=== PATIENT | male | born 1980 | race Caucasian/White ===

== ENCOUNTER 2017-01-24 06:58 | Outpatient (CLI) | payer MEDICAID | END 2017-01-24 06:59 | disposition critical access hospital (66) | DX: F22 Delusional disorders (principal) | CPT/HCPCS: A0425; A0429 ==

== ENCOUNTER 2017-01-24 07:28 | Emergency (ER) | payer MEDICAID ==
[2017-01-24 07:32] VITALS: BP 176/102
--- NOTE | 2017-01-24 08:09 | ED Physician Documentation ---
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 PD PAST MEDICAL HISTORY - Past Medical History Cardiovascular: Hypertension Psych: Anxiety, Other - Past Surgical History Past Surgical History: No - Present Medications Home Medications: Ambulatory Orders Medication Instructions Recorded Confirmed HYDROcod/ACETAM 5/325 [[place] 5/325] 1 - 2 ea PO Q6H PRN #20 tablet 07/29/15 Ibuprofen 400 mg PO QID #30 tablet 08/20/16 Mupirocin 1 applic TP BID #15 oint...g. 08/20/16 - Allergies Allergies/Adverse Reactions: Allergies Allergy/AdvReac Type Severity Reaction Status Date / Time No Known Drug Allergies Allergy Verified 05/22/15 12:31 - Social History Does the pt smoke?: Yes Smoking Status: Current every day smoker Does the pt drink ETOH?: No Does the pt have substance abuse?: Yes - Immunizations Immunizations are current?: Yes - POLST Patient has POLST: No PD ED PE NORMAL - Vitals Vital signs reviewed: Yes (hypertensive ) - General General: No acute distress, Well developed/nourished, Other (The patient appears dishevled and is aloof. ) - HEENT HEENT: Atraumatic, PERRL, Other (poor dentition dry mucous membranes ) - Neck Neck: Supple, no meningeal sign, No bony TTP - Cardiac Cardiac: RRR, No murmur - Respiratory Respiratory: No respiratory distress, Clear bilaterally - Abdomen Abdomen: Soft, Non tender - Back Back: No CVA TTP, No spinal TTP - Derm Derm: Normal color, Warm and dry, No rash - Extremities Extremities: No deformity, No edema - Neuro Neuro: No motor deficit, No sensory deficit Results - Vitals Vitals: Vital Signs - 24 hr 01/24/17 07:29 Temperature 36.1 C L Heart Rate 93 Respiratory 16 Rate Blood Pressure 176/102 H O2 Saturation 98 Oxygen O2 Source Room air PD MEDICAL DECISION MAKING - ED course Complexity details: re-evaluated patient, d/w patient ED course: 37 y/o homeless male admits to excessive use of meth and has not slept in days. He admits to auditory hallucinations and denies homicidal or suicidal ideation or commands. He leaves the ED and is not pursued Departure - Departure Disposition: 07 Against Medical Advice Discharge Date/Time: 01/24/17 08:22
== END 2017-01-24 08:22 | disposition left against medical advice (07) ==
LOC: EDUNIT# → ED 07:28
DX: F15.10 Other stimulant abuse, uncomplicated (principal); R44.0 Auditory hallucinations; I10 Essential (primary) hypertension; F17.200 Nicotine dependence, unspecified, uncomplicated; Z59.0 Homelessness; Z53.20 Procedure and treatment not carried out because of patient's decision for unspecified reasons
CPT/HCPCS: 80053; 80320; 82550; 82553; 83690; 85025; 99282

== ENCOUNTER 2017-01-24 09:46 | Emergency (ER) | payer MEDICAID ==
[2017-01-24 09:53] VITALS: BP 128/80
== END 2017-01-24 10:35 | disposition left against medical advice (07) ==
LOC: ED 09:46
DX: Z53.21 Procedure and treatment not carried out due to patient leaving prior to being seen by health care provider (principal)

== ENCOUNTER 2017-01-24 13:31 | Outpatient (CLI) | payer MEDICAID | END 2017-01-24 13:32 | disposition critical access hospital (66) | DX: R41.0 Disorientation, unspecified (principal) | CPT/HCPCS: A0425; A0429 ==

== ENCOUNTER 2017-01-24 13:47 | Emergency (ER) | payer MEDICAID | END 2017-01-24 16:40 | disposition left against medical advice (07) | DX: F22 Delusional disorders (principal); F15.10 Other stimulant abuse, uncomplicated; I10 Essential (primary) hypertension; F17.200 Nicotine dependence, unspecified, uncomplicated; Z59.0 Homelessness ==

== ENCOUNTER 2017-05-14 12:23 | Emergency (ER) | payer MEDICAID ==
[2017-05-14 12:34] VITALS: BP 148/88
[2017-05-14] MEDS ORDERED: IBUPROFEN 600 MG TABLET PO STA (13:21)
--- NOTE | 2017-05-14 13:24 | ED Physician Documentation ---
PD HPI OPHTHO - Stated complaint Stated Complaint: RED EYE - Chief complaint Chief Complaint: Heent - History obtained from History obtained from: Patient - History of Present Illness Timing - onset: How many weeks ago (2) Timing - duration: Weeks (2) Timing - details: Gradual onset, Still present Location: Right Quality / character: Itching, Sharp Associated symptoms: Redness, Photophobia, Headache Contributing factors: Other (has history of occular herpes) Similar symptoms before: Diagnosis (occular herpes) Recently seen: Not recently seen - Additional information Additional information: 37-year-old male who states that he has a history of recurrent ocular herpes. He has been having symptoms in his right eye for 2 weeks. He went to the [facility] in clinic and was prescribed ofloxacin drops. He feels that since he has been using these drops the eye pain and cloudiness has worsened. Review of Systems Constitutional: denies: Fever, Chills Eyes: reports: Decreased vision, Photophobia, Irritation Ears: denies: Ear pain Nose: denies: Rhinorrhea / runny nose, Congestion Throat: denies: Sore throat Respiratory: denies: Cough GI: denies: Vomiting : denies: Dysuria Skin: denies: Rash Musculoskeletal: denies: Neck pain, Back pain, Extremity pain Neurologic: denies: Generalized weakness, Focal weakness, Numbness PD PAST MEDICAL HISTORY - Past Medical History Cardiovascular: Hypertension Psych: Anxiety, Other - Past Surgical History Past Surgical History: No - Present Medications Home Medications: Ambulatory Orders Medication Instructions Recorded Confirmed Acyclovir 800 mg PO 5XD #35 tablet 05/14/17 - Allergies Allergies/Adverse Reactions: Allergies Allergy/AdvReac Type Severity Reaction Status Date / Time No Known Drug Allergies Allergy Verified 05/14/17 12:33 - Social History Does the pt smoke?: Yes Smoking Status: Current every day smoker Does the pt drink ETOH?: No Does the pt have substance abuse?: Yes - Immunizations Immunizations are current?: Yes - POLST Patient has POLST: No PD ED PE NORMAL - Vitals Vital signs reviewed: Yes (Hypertensive) - General General: Alert and oriented X 3, No acute distress, Well developed/nourished - HEENT HEENT: Atraumatic, PERRL, EOMI, Other (The right eye has a clouded ulceration in the inferior margin of the cornea on the right.) - Respiratory Respiratory: No respiratory distress - Derm Derm: Normal color, Warm and dry, No rash - Extremities Extremities: No deformity, No edema - Neuro Neuro: No motor deficit, No sensory deficit - Psych Psych: Normal mood, Normal affect Results - Vitals Vitals: Vital Signs - 24 hr 05/14/17 12:27 Temperature 36.2 C L Heart Rate 81 Respiratory 16 Rate Blood Pressure 148/88 H O2 Saturation 100 Oxygen O2 Source Room air PD MEDICAL DECISION MAKING - ED course Complexity details: considered differential, d/w patient ED course: 37-year-old male with a history of ocular herpes appears to have another bout and we will place him on some acyclovir orally. Departure - Departure Disposition: 01 Home, Self Care Clinical Impression: Herpes simplex ophthalmicus Condition: Stable Instructions: ED Herpes Keratitis Follow-Up: Partha Trent MD [Provider Admit Priv/Credential] - Prescriptions: Acyclovir 800 mg PO 5XD #35 tablet
[2017-05-14] MEDS ORDERED: IBUPROFEN 600 MG TABLET PO ONE (13:28)
== END 2017-05-14 13:34 | disposition home or self-care (01) ==
LOC: ED 12:23
DX: B00.89 Other herpesviral infection (principal); F17.200 Nicotine dependence, unspecified, uncomplicated
CPT/HCPCS: 99283; A9270

== ENCOUNTER 2017-07-15 19:45 | Outpatient (CLI) | payer MEDICAID | END 2017-07-15 19:46 | disposition critical access hospital (66) | LOC: EMS 19:45 | PROVIDERS: ATTEND Surgery | DX: M79.672 Pain in left foot (principal); M79.671 Pain in right foot | CPT/HCPCS: A0425; A0429 ==

== ENCOUNTER 2017-08-06 00:37 | Emergency (ER) | payer MEDICAID ==
[2017-08-06 00:44] VITALS: BP 142/85
[2017-08-06] MEDS ORDERED: IBUPROFEN 600 MG TABLET PO STA (00:57)
--- NOTE | 2017-08-06 01:05 | ED Physician Documentation ---
PD HPI LOWER EXT INJURY - Stated complaint Stated Complaint: BAM FOOT PAIN - Chief complaint Chief Complaint: Ext Problem - History obtained from History obtained from: Patient - History of Present Illness PD HPI LOW EXT INJURY LOCATION: Right, Left, Foot Where injury occurred: Home Timing - onset: Chronic Timing - details: Gradual onset, Still present Improved by: Rest, Immobilization Worsened by: Moving, Palpating Associated symptoms: Swelling, Discolored Similar symptoms before: Work up / diagnostics, Treatment Recently seen: Emergency Dept - Additional information Additional information: Patient is a 37 year old homeless male with underlying psychiatric disorder and a history of trench foot who is presenting to the emergency department for foot pain. Patient states that he thinks it might be gout and that he needs to get off his feet. Review of Systems Constitutional: denies: Fever, Chills Eyes: reports: Reviewed and negative Ears: reports: Reviewed and negative Nose: reports: Reviewed and negative Throat: reports: Reviewed and negative Cardiac: denies: Chest pain / pressure, Palpitations GI: denies: Nausea, Vomiting : reports: Reviewed and negative Skin: reports: Rash, Lesions Musculoskeletal: reports: Extremity pain, Extremity swelling Neurologic: denies: Generalized weakness, Focal weakness, Numbness PD PAST MEDICAL HISTORY - Past Medical History Past Medical History: Yes Cardiovascular: Hypertension Psych: Depression, Anxiety, Other Musculoskeletal: Gout - Past Surgical History Past Surgical History: No - Present Medications Home Medications: Ambulatory Orders Medication Instructions Recorded Confirmed No Known Home Medications [No 07/15/17 08/06/17 Known Home Medications] - Allergies Allergies/Adverse Reactions: Allergies Allergy/AdvReac Type Severity Reaction Status Date / Time No Known Drug Allergies Allergy Verified 08/06/17 00:43 - Social History Does the pt smoke?: Yes Smoking Status: Current every day smoker Does the pt drink ETOH?: Yes Does the pt have substance abuse?: Yes Substance Use and Type: Other - Immunizations Immunizations are current?: Yes - POLST Patient has POLST: No PD ED PE NORMAL - Vitals Vital signs reviewed: Yes - General General: Alert and oriented X 3, No acute distress - HEENT HEENT: Atraumatic, PERRL - Cardiac Cardiac: RRR, No murmur - Respiratory Respiratory: No respiratory distress - Abdomen Abdomen: Non distended - Neuro Neuro: Alert and oriented X 3, No motor deficit, No sensory deficit PD ED PE EXPANDED - General General: Disheveled, poorly kept - Derm Derm: Rash (skin breakdown on bilateral feet consistent with trench foot) - Extremities Extremities: Right foot, Left foot (mild erythema and flaking skin of both feet. foul smelling) Results - Vitals Vitals: Vital Signs - 24 hr 08/06/17 00:41 Temperature 37 C Heart Rate 76 Respiratory 18 Rate Blood Pressure 142/85 H O2 Saturation 99 Oxygen O2 Source Room air PD MEDICAL DECISION MAKING - ED course Complexity details: reviewed old records, reviewed results, re-evaluated patient , considered differential, d/w patient ED course: Patient was seen and examined at bedside. patient was well appearing and in no distress. Patient's feet were examined and patient was treated with ibuprofen. Patient had no imaging or further work up at this time and was stable for discharge with outpatient follow up. Departure - Departure Disposition: 01 Home, Self Care Clinical Impression: Immersion (trench) foot Condition: Good Instructions: Rash Skin Self Care Follow-Up: Kathy Huffman ARNP [Primary Care Provider] - Comments: the best treatment for your feet is to keep them clean and dry. You should change your socks frequently. You can take motrin or tylenol as needed for pain. You can also try applying eucerin cream after washing your feet. You should follow up with your doctor for further evaluation and care.
[2017-08-06] MEDS ORDERED: IBUPROFEN 600 MG TABLET PO ONE (01:12)
== END 2017-08-06 02:00 | disposition home or self-care (01) ==
LOC: ED 00:37
DX: T69.022A Immersion foot, left foot, initial encounter (principal); T69.021A Immersion foot, right foot, initial encounter; X31.XXXA Exposure to excessive natural cold, initial encounter; Z59.0 Homelessness; I10 Essential (primary) hypertension; F17.200 Nicotine dependence, unspecified, uncomplicated
CPT/HCPCS: 99283; A9270

== ENCOUNTER 2017-09-04 10:22 | Outpatient (CLI) | payer MEDICAID | END 2017-09-04 10:23 | disposition EMS.NT | LOC: EMS 10:22 | PROVIDERS: ATTEND Surgery | DX: R51 Headache (principal); M79.642 Pain in left hand; M79.641 Pain in right hand ==

== ENCOUNTER 2017-09-13 01:41 | Emergency (ER) | payer MEDICAID ==
[2017-09-13 01:51] VITALS: BP 148/87
[2017-09-13] MEDS ORDERED: ACETAMINOPHEN 500 MG TABLET PO STA (02:03)
--- NOTE | 2017-09-13 02:04 | ED Physician Documentation ---
History of Present Illness - Stated complaint Stated Complaint: ANXIETY,HIGH BLOOD PRESSURE - Chief complaint Chief Complaint: General - History obtained from History obtained from: Patient - History of Present Illness Timing: Today Pain level max: 6 Pain level now: 6 Improved by: rest Worsened by: nothing - Additonal information Additional information: Patient is a 37-year-old gentleman who presents to the emergency department complaining of being cold tonight. He is homeless and has been unable to find a penitentiary tonight. He also states that he has a mild headache, 5-6 out of 10. Has not had any alcohol today. He does smoke cigarettes. No vomiting. Has had rhinorrhea and congestion. Also has rainouts disease and states that his hands turn white or dark purple in the cold. Review of Systems Ten Systems: 10 systems reviewed and negative Constitutional: denies: Fever, Chills Ears: reports: Ear pain Nose: reports: Rhinorrhea / runny nose, Congestion Throat: denies: Sore throat Respiratory: reports: Cough (dry) GI: denies: Abdominal Pain, Nausea, Vomiting, Diarrhea Skin: denies: Rash Musculoskeletal: denies: Neck pain, Back pain Neurologic: denies: Headache PD PAST MEDICAL HISTORY - Past Medical History Past Medical History: Yes Cardiovascular: Hypertension Psych: Depression, Anxiety, Other Musculoskeletal: Gout - Past Surgical History Past Surgical History: No - Present Medications Home Medications: Ambulatory Orders Medication Instructions Recorded Confirmed No Known Home Medications [No 07/15/17 08/06/17 Known Home Medications] - Allergies Allergies/Adverse Reactions: Allergies Allergy/AdvReac Type Severity Reaction Status Date / Time No Known Drug Allergies Allergy Verified 09/13/17 01:51 - Social History Does the pt smoke?: Yes Smoking Status: Current every day smoker Does the pt drink ETOH?: Yes ETOH Use: Beer Does the pt have substance abuse?: Yes Substance Use and Type: Meth - Immunizations Immunizations are current?: Yes - POLST Patient has POLST: No PD ED PE NORMAL - Vitals Vital signs reviewed: Yes - General General: Alert and oriented X 3, No acute distress, Well developed/nourished - HEENT HEENT: PERRL, Ears normal, Moist mucous membranes, Pharynx benign - Neck Neck: Supple, no meningeal sign - Cardiac Cardiac: RRR, Strong equal pulses - Respiratory Respiratory: No respiratory distress, Clear bilaterally - Abdomen Abdomen: Soft, Non tender, Non distended - Derm Derm: Warm and dry, Other (cool hands, white/purple. NVI) - Extremities Extremities: No tenderness to palpate - Neuro Neuro: Alert and oriented X 3 - Psych Psych: Normal mood, Normal affect Results - Vitals Vitals: Vital Signs - 24 hr 09/13/17 01:45 Temperature 36.7 C Heart Rate 95 Respiratory 18 Rate Blood Pressure 148/87 H O2 Saturation 98 Oxygen O2 Source Room air PD MEDICAL DECISION MAKING - ED course Complexity details: re-evaluated patient, considered differential, d/w patient ED course: Patient is a 37-year-old male who presents to the emergency department with chief complaint of homelessness tonight. It is rather cold outside and he wanted somewhere warm to sleep. Also had a mild headache. Resolved with Tylenol. Tolerating p.o. without difficulty. No acute emergency medical condition at this time. Patient counseled regarding signs and symptoms for which I believe and urgent re-evaluation would be necessary. Patient with good understanding of and agreement to plan and is comfortable going home at this time This document was made in part using voice recognition software. While efforts are made to proofread this document, sound alike and grammatical errors may occur. Patient also with Reynauds and this resolved in the ED. Departure - Departure Disposition: 01 Home, Self Care Clinical Impression: Homeless Headache Qualifiers: Headache type: unspecified Headache chronicity pattern: acute headache Intractability: not intractable Qualified Code(s): R51 - Headache Condition: Good Instructions: ED Cephalgia Unspecified Follow-Up: Kathy Huffman ARNP [Primary Care Provider] - Within 1 week Comments: Drink plenty of fluids and rest. Return if you worsen. Discharge Date/Time: 09/13/17 02:21
== END 2017-09-13 02:21 | disposition home or self-care (01) ==
LOC: ED 01:41
DX: R51 Headache (principal); Z59.0 Homelessness; I73.00 Raynaud's syndrome without gangrene; I10 Essential (primary) hypertension; F17.200 Nicotine dependence, unspecified, uncomplicated
CPT/HCPCS: 99282; 99283; A9270

== ENCOUNTER 2017-11-18 23:03 | Emergency (ER) | payer MEDICAID ==
[2017-11-18 23:31] LABS: BASOPHILS # (AUTO) 0.1 10^3/uL (0.0-0.1); EOSINOPHILS # (AUTO) 0.5 10^3/uL (0.0-0.7); EOSINOPHILS % (AUTO) 5.3 %; HGB - HEMOGLOBIN 14.2 g/dL (14.0-18.0); LYMPHOCYTES # (AUTO) 3.9 10^3/uL (1.5-3.5); LYMPHOCYTES % (AUTO) 39.7 %; MEAN CORPUSCULAR HEMOGLOBIN 29.7 pg (27.0-31.0); MEAN CORPUSCULAR HGB CONC 34.1 g/dL (32.0-36.0); MEAN PLATELET VOLUME 7.4 fL (7.4-11.4); MONOCYTES # (AUTO) 0.7 10^3/uL (0.0-1.0); MONOCYTES % (AUTO) 6.8 %; NEUTROPHILS # (AUTO) 4.6 10^3/uL (1.5-6.6); NEUTROPHILS % (AUTO) 47.2 %; PLT - PLATELET COUNT 303 10^3/uL (130-450); RED BLOOD COUNT 4.77 10^6/uL (4.70-6.10); RED CELL DISTRIBUTION WIDTH 14.1 % (12.0-15.0); WHITE BLOOD COUNT 9.8 x10^3/uL (4.8-10.8)
[2017-11-18 23:42] LABS: ALBUMIN 3.9 g/dL (3.2-5.5); ALBUMIN/GLOBULIN RATIO 1.4 (1.0-2.2); ALKALINE PHOSPHATASE 63 IU/L (42-121); ALT ALANINE AMINOTRANSFERASE 45 IU/L (10-60); AST ASPARTATE AMINOTRANSFERASE 22 IU/L (10-42); BILIRUBIN,TOTAL 0.5 mg/dL (0.2-1.0); BUN - BLOOD UREA NITROGEN 25 mg/dL (6-20); CARBON DIOXIDE - CO2 24 mmol/L (21-32); CHLORIDE 103 mmol/L (101-111); GFR - MDRD 85 (>89); GLUCOSE 101 mg/dL (70-100); LIPASE 19 U/L (22-51); SODIUM 137 mmol/L (135-145); TOTAL PROTEIN 6.6 g/dL (6.7-8.2)
[2017-11-19 01:50] VITALS: BP 127/66
--- NOTE | 2017-11-19 01:53 | ED Physician Documentation ---
PD HPI MHE - Stated complaint Stated Complaint: SI - Chief complaint Chief Complaint: MHE - History obtained from History obtained from: Patient, Police - History of Present Illness Primary symptom: Psychosis Contributing factors: Substance abuse - drugs, Off meds Similar symptoms before: Work up / diagnostics Recently seen: Emergency Dept - Additional information Additional information: Patient is a 37 year old homeless male with a history of psychiatric disorder and methamphetamine abuse who is presenting to the emergency department for depression and altered mental status. Patient told police that he needed to clear his head and that he was depressed and needed a good nights sleep so they brought the patient to the emergency department. Review of Systems Unable to obtain: Confused PD PAST MEDICAL HISTORY - Past Medical History Cardiovascular: Hypertension Psych: Depression, Anxiety, Other Musculoskeletal: Gout - Past Surgical History Past Surgical History: No - Present Medications Home Medications: Ambulatory Orders Medication Instructions Recorded Confirmed No Known Home Medications [No 07/15/17 08/06/17 Known Home Medications] - Allergies Allergies/Adverse Reactions: Allergies Allergy/AdvReac Type Severity Reaction Status Date / Time No Known Drug Allergies Allergy Verified 11/18/17 23:08 - Social History Does the pt smoke?: Yes Smoking Status: Current every day smoker Does the pt drink ETOH?: Yes Does the pt have substance abuse?: Yes Substance Use and Type: Other - Immunizations Immunizations are current?: Yes - POLST Patient has POLST: No PD ED PE NORMAL - HEENT HEENT: Atraumatic - Neck Neck: Supple, no meningeal sign - Cardiac Cardiac: RRR - Respiratory Respiratory: No respiratory distress - Abdomen Abdomen: Non distended - Neuro Neuro: No motor deficit, Normal speech Eye Opening: Spontaneous Motor: Obeys Commands Verbal: Confused GCS Score: 14 PD ED PE EXPANDED - General General: Alert, Disheveled, poorly kept - HEENT HEENT: Dry mucous membranes - Extremities Extremities: Other (bilateral trench feet) Results - Vitals Vitals: Vital Signs - 24 hr 11/18/17 11/19/17 23:09 01:49 Temperature 36.6 C Heart Rate 86 77 Respiratory 16 18 Rate Blood Pressure 145/93 H 127/66 O2 Saturation 99 98 Oxygen O2 Source Room air - Labs Labs: Laboratory Tests 11/18/17 11/18/17 23:20 23:20 WBC 9.8 RBC 4.77 Hgb 14.2 Hct 41.5 L MCV 87.0 MCH 29.7 MCHC 34.1 RDW 14.1 Plt Count 303 MPV 7.4 Neut # 4.6 Lymph # 3.9 H Dolores # 0.7 Eos # 0.5 Baso # 0.1 Absolute Nucleated RBC 0.00 Nucleated RBC % 0.0 Sodium 137 Potassium 3.7 Chloride 103 Carbon Dioxide 24 Anion Gap 10.0 BUN 25 H Creatinine 1.0 Estimated GFR (MDRD) 85 L Glucose 101 H Calcium 9.0 Total Bilirubin 0.5 AST 22 ALT 45 Alkaline Phosphatase 63 Total Protein 6.6 L Albumin 3.9 Globulin 2.7 Albumin/Globulin Ratio 1.4 Lipase 19 L Ethyl Alcohol < 5.0 PD MEDICAL DECISION MAKING - ED course Complexity details: reviewed old records, reviewed results, re-evaluated patient , considered differential, d/w patient ED course: Patient was seen and examined at bedside. Patient was likely under the influence of meth but stated that he did not want to take a "piss test". Patient was allowed to sleep and was observed for 7 hours. IN the morning patient was awake, alert and stated that he did not want to talk to anybody. Patient was stable for discharge with outpatient follow up. Departure - Departure Disposition: 01 Home, Self Care Clinical Impression: Homeless, Depression, Affective psychosis Condition: Good Instructions: ED Stress React Follow-Up: Kathy Huffman ARNP [Primary Care Provider] - Within 3 Days Comments: Please follow up with your doctor. You may return to the emergency department at any time for new, worsening or uncontrollable symptoms.
== END 2017-11-19 06:48 | disposition home or self-care (01) ==
LOC: ED 23:03
DX: F32.9 Major depressive disorder, single episode, unspecified (principal); F29 Unspecified psychosis not due to a substance or known physiological condition; F15.10 Other stimulant abuse, uncomplicated; F17.200 Nicotine dependence, unspecified, uncomplicated; Z59.0 Homelessness
CPT/HCPCS: 36415; 80053; 80320; 83690; 85025; 99283; 99284

== ENCOUNTER 2022-12-30 07:00 | Outpatient (CLI) | payer MEDICAID ==
--- NOTE | 2022-12-30 15:45 | XRAY Report ---
PROCEDURE: Chest 2 View X-Ray INDICATIONS: WHEEZING TECHNIQUE: 2 views of the chest were acquired. COMPARISON: None. FINDINGS: Surgical changes and devices: None. Lungs and pleura: No pleural effusions or pneumothorax. Lungs are clear. Mediastinum: Mediastinal contours appear normal. Heart size is normal. Bones and chest wall: No suspicious bony lesions. Overlying soft tissues appear unremarkable. IMPRESSION: No acute cardiopulmonary process. Reviewed by: Enrique Garcia on 12/30/2022 3:43 PM PDT Approved by: Enrique Garcia on 12/30/2022 3:43 PM PDT Station ID: [id number]
== END 2022-12-30 23:59 | disposition home or self-care (01) ==
LOC: DI.S 07:00
PROVIDERS: ATTEND Physician Assistant
DX: R06.2 Wheezing (principal); R05.9 Cough, unspecified

== ENCOUNTER 2023-09-22 13:15 | Emergency (ER) | payer MEDICAID, OTHER ==
[2023-09-22 13:28] VITALS: BP 143/86; O2SAT 98
--- NOTE | 2023-09-22 14:09 | ED Physician Documentation ---
PD HPI OPHTHO - Stated complaint Stated Complaint: L EYE SWELLING/REDENSS - Chief complaint Chief Complaint: Heent - Additional information Additional information: 43-year-old male presents with left eyelid swelling and irritation and redness. 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 He does not feel a foreign body sensation but wonders if some debris or dust got in his eye. He woke up today and it was nearly completely swollen shut. It itches a little and its uncomfortable. He has also noted some mucoid drainage. He has not had a fever. He states when he forces his eye open he does not have any change in vision and he can see well out of the left eye. 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 He has no history of eye allergies, and has not attempted any medication for this issue. PD PAST MEDICAL HISTORY - Past Medical History Past Medical History: Yes Cardiovascular: Hypertension HEENT: Chronic vision loss, Other Psych: Depression, Anxiety, Other Musculoskeletal: Gout Other Past Medical History: ocular herpes - Past Surgical History Past Surgical History: No - Present Medications Home Medications: Ambulatory Orders Medication Instructions Recorded Confirmed Amox/Clav 875/125 [Augmentin] 1 each PO Q12H #20 tablet 09/22/23 Tobramycin/Dexamethasone [Tobradex 1 - 2 drops OP Q4H 7 Days #2.5 ml 09/22/23 Eye Drops] diphenhydrAMINE [Benadryl] 25 mg PO Q4-6H #10 cap 09/22/23 - Allergies Allergies/Adverse Reactions: Allergies Allergy/AdvReac Type Severity Reaction Status Date / Time No Known Drug Allergies Allergy Verified 09/22/23 13:25 - Social History Does the pt smoke?: Yes Smoking Status: Current every day smoker Does the pt drink ETOH?: Yes Does the pt have substance abuse?: No - Immunizations Immunizations are current?: Yes - POLST Patient has POLST: No PD ED PE NORMAL - Vitals Vital signs reviewed: Yes - General General: Alert and oriented X 3, No acute distress, Well developed/nourished - HEENT HEENT: Atraumatic, Other (Corneal cloudiness of the right eye, no vision of the right eye. Left eye PERRL, EOMI. There is substantial upper lid swelling and conjunctival edema. No visual foreign body, no corneal ulceration or foreign body noted. No corneal abrasion.) - Cardiac Cardiac: RRR, No murmur, No gallop, No rub - Respiratory Respiratory: No respiratory distress, Clear bilaterally - Abdomen Abdomen: Normal bowel sounds, Soft, Non tender, Non distended - Free text exam Free text exam: Slight mucoid drainage from the left eye, mild redness of the left conjunctiva. 20/30 vision left eye. Results - Vitals Vitals: Vital Signs - 24 hr 09/22/23 13:21 Temperature 36.3 C L Heart Rate 93 Respiratory 16 Rate Blood Pressure 143/86 H O2 Saturation 98 Oxygen O2 Source Room air PD Medical Decision Making - ED course Complexity details: considered differential, d/w patient ED course: 43-year-old male presented with left eye lid swelling and eye redness as well as discomfort as described in HPI. On exam, patient does have baseline vision, there is no foreign body visualized, no corneal abrasion. He does have lid swelling which may be allergic or infectious. There are some mucoid drainage and edema. I discussed with patient that I recommend we treat more aggressively given he has no vision in his right eye. I we will give him Tobrex eyedrops to use every 4 hours for the next few days and then he can also take Augmentin for possible early preseptal cellulitis. Also recommended a cool compress to the eyelid and trying Benadryl as well to see if that helps with the swelling. I gave the patient a low threshold to return if he has any changes in vision, increased pain, difficulty moving the eye or new concerns and patient states understanding. 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 The redness and swelling may be a reaction to something that got into your eye or that you were exposed to versus an infection. Given your lack of vision in the right eye, I want to treat this more aggressively and I am going to give you eyedrops as well as oral antibiotics. I also recommend that you use a cool compress on the eyelid and take Benadryl as needed for the next several days which may help with swelling. If at any point time this seems to be worsening I would like you to return to the ER or see an eye doctor. Forms: PCP List Discharge Date/Time: 09/22/23 14:21
== END 2023-09-22 14:21 | disposition home or self-care (01) ==
LOC: ED 13:15
DX: H44.002 Unspecified purulent endophthalmitis, left eye (principal); F17.200 Nicotine dependence, unspecified, uncomplicated
CPT/HCPCS: 99283

== ENCOUNTER 2023-10-20 18:27 | Emergency (ER) | payer MEDICAID ==
[2023-10-20 18:37] VITALS: BP 195/124; O2SAT 100
[2023-10-20] MEDS ORDERED: HYDROcod/ACETAM 5/325 MG TABLET PO STA (18:47)
--- NOTE | 2023-10-20 18:56 | ED Physician Documentation ---
History of Present Illness - Stated complaint Stated Complaint: TOOTH PX - Chief complaint Chief Complaint: Heent - History obtained from History obtained from: Patient, Family - History of Present Illness Timing: How many weeks ago (1) Pain level max: 7 Pain level now: 7 - Additonal information Additional information: 43-year-old male with left upper dental pain. He states he has a problem with his teeth for many years, has seen a dentist and was supposed to have a tooth extraction but never followed up. He does smoke. No fevers. No chills. No facial swelling. Taking Tylenol without relief. No difficulty speaking or swallowing. No vision changes. Review of Systems Constitutional: denies: Fever, Chills PD PAST MEDICAL HISTORY - Past Medical History Past Medical History: Yes Cardiovascular: Hypertension Respiratory: None HEENT: Chronic vision loss, Other Psych: Depression, Anxiety, Other Musculoskeletal: Gout - Past Surgical History Past Surgical History: No - Present Medications Home Medications: Ambulatory Orders Medication Instructions Recorded Confirmed Amox/Clav 875/125 [Augmentin] 1 tab PO Q12H #20 tablet 10/20/23 HYDROcod/ACETAM 5/325 [[place] 5/325] 1 - 2 ea PO Q6H PRN #7 tablet 10/20/23 - Allergies Allergies/Adverse Reactions: Allergies Allergy/AdvReac Type Severity Reaction Status Date / Time No Known Drug Allergies Allergy Verified 10/20/23 18:30 - Social History Does the pt smoke?: Yes Smoking Status: Current every day smoker Does the pt drink ETOH?: No Does the pt have substance abuse?: Yes Substance Use and Type: Marijuana - Immunizations Immunizations are current?: Yes - POLST Patient has POLST: No PD ED PE NORMAL - Vitals Vital signs reviewed: Yes - General General: Alert and oriented X 3, No acute distress - HEENT HEENT: Moist mucous membranes, Other (Diffuse dental decay, decayed teeth throughout his mouth. There is no gingival abscess or drainable abscess. Tenderness near the left upper canine.) - Neck Neck: Supple, no meningeal sign - Derm Derm: Warm and dry - Neuro Neuro: Alert and oriented X 3 Results - Vitals Vitals: Vital Signs - 24 hr 10/20/23 10/20/23 18:32 19:04 Temperature 36.7 C Heart Rate 110 H Respiratory 18 17 Rate Blood Pressure 195/124 H O2 Saturation 100 Oxygen O2 Source Room air PD Medical Decision Making - ED course Complexity details: considered differential, d/w patient ED course: 43-year-old male with diffuse dental decay. No drainable abscess. No Dre's angina. Normal phonation. No trismus. Will place on antibiotics and pain medication. Have him follow-up with a dentist for further care. Patient counseled regarding signs and symptoms for which I believe and urgent re- evaluation would be necessary. Patient with good understanding of and agreement to plan and is comfortable going home at this time This document was made in part using voice recognition software. While efforts are made to proofread this document, sound alike and grammatical errors may occur. Departure - Departure Disposition: Home, Self Care Clinical Impression: Pain, dental Condition: Good Instructions: ED Tooth Pain Follow-Up: your,dentist this week [Other] Prescriptions: Amox/Clav 875/125 [Augmentin] 1 tab PO Q12H #20 tablet HYDROcod/ACETAM 5/325 [[place] 5/325] 1 - 2 ea PO Q6H PRN #7 tablet PRN Reason: Pain Comments: Take all antibiotics until gone. Return if you worsen. Your prescriptions were sent to [facility] in [place]. I am prescribing a short course of narcotic pain medication for you. These are potentially dangerous and addictive medications that should be used carefully. These medications may constipate you. Take an [id number] stool softener (docusate) twice daily with plenty of water while taking these medications. If you go 24 hours without a bowel movement, take [id number] miralax, per package instructions. Do not drink or drive while taking these medications. If you received narcotic or sedating medications while in the emergency department, do not drive for 24 hours. Store this medication in a safe, secure place and out of reach of children. It is a violation of federal law to give or sell this medication to another person or to use in a manner other than prescribed. The ED will not refill narcotic prescriptions, including prescriptions lost or stolen. To dispose of unwanted medications: 1. [facility] [address] in [place] has a medication drop box. They accept prescription medications (in pill form) Thursday through Thursday 9:00 a.m. to 5:00 p.m. 2. The [facility] [employer] accepts prescription medications (in pill form only) for disposal year round. Call for more information. 3. Contact the [facility] for the next [facility] sponsored prescription drug collection event. , [phone], or [phone]; Forms: PCP List Discharge Date/Time: 10/20/23 19:14
[2023-10-20] MEDS: AMOX/CLAV 875 MG/125 MG TABLET PO STA (19:01)
== END 2023-10-20 19:14 | disposition home or self-care (01) ==
LOC: ED 18:27
DX: K08.89 Other specified disorders of teeth and supporting structures (principal); I10 Essential (primary) hypertension; F17.200 Nicotine dependence, unspecified, uncomplicated
CPT/HCPCS: 99282; 99283; A9270

== ENCOUNTER 2023-12-20 04:58 | Outpatient (CLI) | payer SELFPAY | END 2023-12-20 23:59 | disposition critical access hospital (66) | LOC: EMS 04:58 | DX: R44.0 Auditory hallucinations (principal); F15.90 Other stimulant use, unspecified, uncomplicated | CPT/HCPCS: A0425; A0429 ==

== ENCOUNTER 2023-12-20 05:31 | Emergency (ER) | payer SELFPAY ==
--- NOTE | 2023-12-20 05:43 | ED Physician Documentation ---
PD HPI MHE - Stated complaint Stated Complaint: HALLUCINATIONS - Chief complaint Chief Complaint: MHE - History obtained from History obtained from: Patient - Additional information Additional information: BIBA. Patient called 911 due to auditory hallucinations. He is a somewhat scattered and vague historian on my HPI. The is unable to provide timeframe of onset. When I ask him when the auditory hallucinations started, he initially says 3 years ago. However, when I ask him when his most recent bout of auditory hallucinations started, he says somewhere in the last 1 or 2 days. He tells me "I didn't feel safe at home" but when I ask why he is unable to elaborate. He denies SI, denies HI, denies VH. Review of Systems Psychiatric: reports: Hallucinations, Anxiety, Insomnia. denies: Depressed, Suicidal, Homicidal PD PAST MEDICAL HISTORY - Past Medical History Past Medical History: Yes Cardiovascular: Hypertension Respiratory: None HEENT: Chronic vision loss, Other Psych: Depression, Anxiety, Other Musculoskeletal: Gout - Past Surgical History Past Surgical History: No - Present Medications Home Medications: Ambulatory Orders Medication Instructions Recorded Confirmed No Known Home Medications 12/20/23 12/20/23 - Allergies Allergies/Adverse Reactions: Allergies Allergy/AdvReac Type Severity Reaction Status Date / Time No Known Drug Allergies Allergy Verified 12/20/23 05:57 - Social History Does the pt smoke?: Yes Smoking Status: Current every day smoker Does the pt drink ETOH?: No Does the pt have substance abuse?: Yes - Immunizations Immunizations are current?: Yes - POLST Patient has POLST: No PD ED PE NORMAL - Vitals Vital signs reviewed: Yes - General General: Well developed/nourished, Other (anxious, poor eye contact, answers are frequently mumbled. answers many questions with vague responses such as "I can't talk about that") - HEENT HEENT: Other (right corneal opacification) - Cardiac Cardiac: RRR, No murmur - Respiratory Respiratory: No respiratory distress, Clear bilaterally - Abdomen Abdomen: Soft, Non tender Results - Vitals Vitals: Vital Signs - 24 hr 12/20/23 05:35 Temperature 36.7 C Heart Rate 84 Respiratory 16 Rate Blood Pressure 167/112 H O2 Saturation 96 Oxygen O2 Source Room air - Labs Labs: Laboratory Tests 12/20/23 12/20/23 07:19 07:19 WBC 7.9 RBC 4.79 Hgb 13.8 L Hct 42.0 MCV 87.7 MCH 28.8 MCHC 32.9 RDW 13.2 Plt Count 317 MPV 9.4 Neut # (Auto) 3.9 Lymph # (Auto) 2.8 [place] # (Auto) 0.7 Eos # (Auto) 0.4 Baso # (Auto) 0.1 Absolute Nucleated RBC 0.00 Nucleated RBC % 0.0 Sodium 137 Potassium 3.7 Chloride 104 Carbon Dioxide 28 Anion Gap 5.0 L BUN 20 Creatinine 1.0 Estimated GFR (MDRD) 82 L Glucose 118 H Calcium 9.5 Magnesium 1.8 Total Bilirubin 0.4 AST 23 ALT 19 Alkaline Phosphatase 68 Total Creatine Kinase 391 H Total Protein 6.2 L Albumin 4.0 Globulin 2.2 Albumin/Globulin Ratio 1.8 Lipase 16 TSH 0.87 Salicylates < 1.5 Acetaminophen 0.2 Ethyl Alcohol < 10.0 PD Medical Decision Making - ED course Complexity details: re-evaluated patient, considered differential, d/w patient ED course: Patient is anxious and slightly hyperkinetic on my H+P, mumbles many answers and other answers are vague. However, he is cooperative and answers some questions with pertinent responses. He denies SI, HI, VH. He says he is having AH although he indicated to triaging ED RN that the AH are not command hallucinations. I d/w patient goal(s) of treatment from his perspective (what he is hoping to have done for him on this ED visit), but this seems to make him slightly more anxious and distressed. He initially tells me he does not want to have blood drawn (which I recommended for purposes of medical clearance for telepsychiatric consult) because he is feeling too anxious and tense. I recommended 5mg TL zyprexa, explaining the purpose of this will be to hopefully reduce the AH and give him a mental filter for the apparently overwhelming AH he is experiencing, and he is agreeable to this. On reevaluation after the zyprexa has had adequate time to take effect, he is sleeping, awakens to gentle tactile (shoulder tap). He appears significantly more calm and less hyperkinetic. We again discussed options for treatment and he is now agreeable to my recommendation to have telepsychiatric consult; he is agreeable to blood tests and UA so that he can be medically cleared for the consult. Test results pending at end of my shift and thus care of patient is turned over to oncoming ED physician (Dr. Avilez) at end of my shift Departure - Departure Forms: PCP List
[2023-12-20] MEDS: OLANZapine ODT 5 MG TABLET TL STA (05:59)
[2023-12-20 07:25] LABS: BASOPHILS # (AUTO) 0.1 10^3/uL (0.0-0.1); BASOPHILS % (AUTO) 1.5 %; EOSINOPHILS # (AUTO) 0.4 10^3/uL (0.0-0.7); EOSINOPHILS % (AUTO) 5.3 %; HGB - HEMOGLOBIN 13.8 g/dL (14.0-18.0); LYMPHOCYTES # (AUTO) 2.8 10^3/uL (1.5-3.5); LYMPHOCYTES % (AUTO) 35.1 %; MEAN CORPUSCULAR HEMOGLOBIN 28.8 pg (27.0-31.0); MEAN CORPUSCULAR HGB CONC 32.9 g/dL (32.0-36.0); MEAN CORPUSCULAR VOLUME 87.7 fL (80.0-94.0); MEAN PLATELET VOLUME 9.4 fL (7.4-11.4); MONOCYTES # (AUTO) 0.7 10^3/uL (0.0-1.0); NEUTROPHILS # (AUTO) 3.9 10^3/uL (1.5-6.6); NEUTROPHILS % (AUTO) 48.8 %; PLT - PLATELET COUNT 317 10^3/uL (130-450); RED BLOOD COUNT 4.79 10^6/uL (4.70-6.10); RED CELL DISTRIBUTION WIDTH 13.2 % (12.0-15.0); WHITE BLOOD COUNT 7.9 x10^3/uL (4.8-10.8)
[2023-12-20 07:51] LABS: ACETAMINOPHEN 0.2 ug/mL; ALBUMIN/GLOBULIN RATIO 1.8 (1.0-2.2); ALKALINE PHOSPHATASE 68 IU/L (42-121); ALT ALANINE AMINOTRANSFERASE 19 IU/L (10-60); AST ASPARTATE AMINOTRANSFERASE 23 IU/L (10-42); BILIRUBIN,TOTAL 0.4 mg/dL (0.2-1.0); BUN - BLOOD UREA NITROGEN 20 mg/dL (6-20); CALCIUM 9.5 mg/dL (8.5-10.3); CARBON DIOXIDE - CO2 28 mmol/L (21-32); CHLORIDE 104 mmol/L (101-111); CK- CREATINE KINASE 391 IU/L (30-223); ETOH - ETHANOL < 10.0 mg/dL; GFR - MDRD 82 (>89); GLUCOSE 118 mg/dL (74-104); LIPASE 16 U/L (11-82); MAGNESIUM 1.8 mg/dL (1.7-2.3); POTASSIUM 3.7 mmol/L (3.5-4.5); SODIUM 137 mmol/L (135-145); TOTAL PROTEIN 6.2 g/dL (6.4-8.9)
[2023-12-20 07:52] LABS: THYROID STIMULATING HORMONE 0.87 uIU/mL (0.34-5.60)
[2023-12-20 07:57] LABS: SALICYLATE < 1.5 mg/dL
[2023-12-20] MEDS: traZODone 50 MG TABLET PO STA (10:40)
--- NOTE | 2023-12-20 10:43 | ED Physician Documentation ---
ED Addendum - Addendum Addendum: 12/20/23 10:41 The patient had slept for several hours. He awoke and was a little bit dazed but conversant and appropriate. He is forward-looking with the plan and would like to get [place] and would prefer to just oral medication prescription in is declining hospitalization needed at this time. There was no reports of suicidal nor homicidal. He does not appear disabled enough for involuntary. Will go with the discharge at this time. I offered a prescription for him and he was in agreement. 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 However there could be some underlying schizoaffective. He also had been having trouble sleeping recently. I would go short-term with olanzapine twice daily for the next several days week or so. Also prescribed trazodone to use at night to help with sleep and this could have a sustaining effect through the day as well. I sent prescriptions to the [facility] his preferred pharmacy. At this point we will discharge him home. Disposition: The patient discharged home in safe bowl condition. Diagnoses: 1. Auditory hallucinations 2. Reported substance use
[2023-12-20 11:08] VITALS: BP 164/85; O2SAT 97
== END 2023-12-20 11:03 | disposition home or self-care (01) ==
LOC: EDUNIT# → ED 05:31
DX: R44.0 Auditory hallucinations (principal); F19.90 Other psychoactive substance use, unspecified, uncomplicated; G47.00 Insomnia, unspecified; F41.9 Anxiety disorder, unspecified; I10 Essential (primary) hypertension; F17.200 Nicotine dependence, unspecified, uncomplicated
CPT/HCPCS: 36415; 80053; 80143; 80179; 82077; 82550; 83690; 83735; 84443; 85025; 99283; 99284; A9270

== ENCOUNTER 2023-12-27 17:47 | Emergency (ER) | payer MEDICAID ==
[2023-12-27 18:20] LABS: BASOPHILS # (AUTO) 0.1 10^3/uL (0.0-0.1); BASOPHILS % (AUTO) 0.6 %; EOSINOPHILS # (AUTO) 0.3 10^3/uL (0.0-0.7); EOSINOPHILS % (AUTO) 1.9 %; HCT - HEMATOCRIT 46.1 % (42.0-52.0); HGB - HEMOGLOBIN 15.3 g/dL (14.0-18.0); LYMPHOCYTES # (AUTO) 2.3 10^3/uL (1.5-3.5); LYMPHOCYTES % (AUTO) 13.5 %; MEAN CORPUSCULAR HEMOGLOBIN 29.2 pg (27.0-31.0); MEAN CORPUSCULAR HGB CONC 33.2 g/dL (32.0-36.0); MEAN PLATELET VOLUME 9.8 fL (7.4-11.4); MONOCYTES # (AUTO) 1.2 10^3/uL (0.0-1.0); MONOCYTES % (AUTO) 7.2 %; NEUTROPHILS # (AUTO) 12.9 10^3/uL (1.5-6.6); NEUTROPHILS % (AUTO) 76.5 %; PLT - PLATELET COUNT 307 10^3/uL (130-450); RED BLOOD COUNT 5.24 10^6/uL (4.70-6.10); RED CELL DISTRIBUTION WIDTH 13.1 % (12.0-15.0); WHITE BLOOD COUNT 16.9 x10^3/uL (4.8-10.8)
[2023-12-27 18:41] LABS: ALBUMIN 4.3 g/dL (3.2-5.5); ALBUMIN/GLOBULIN RATIO 1.3 (1.0-2.2); BILIRUBIN,TOTAL 0.4 mg/dL (0.2-1.0); CALCIUM 10.3 mg/dL (8.5-10.3); CREATININE 0.9 mg/dL (0.6-1.3); POTASSIUM 3.9 mmol/L (3.5-4.5); TOTAL PROTEIN 7.5 g/dL (6.4-8.9)
[2023-12-27 18:52] LABS: BILIRUBIN,URINE NEGATIVE (NEGATIVE); CLARITY,URINE CLEAR (CLEAR); GLUCOSE, URINE (UA) NEGATIVE (NEGATIVE); KETONES,URINE (UA) NEGATIVE (NEGATIVE); LEUKOCYTE ESTERASE, URINE NEGATIVE (NEGATIVE); NITRITE,URINE NEGATIVE (NEGATIVE); OCCULT BLOOD,URINE NEGATIVE (NEGATIVE); PH,URINE 6.5 PH (5.0-7.5); PROTEIN,URINE TRACE mg/dL (NEGATIVE); UROBILINOGEN,URINE 0.2 (NORMAL) E.U./dL (NORMAL)
[2023-12-27] MEDS ORDERED: iohexoL-300 100 ML VIAL ONE (19:04)
[2023-12-27] MEDS: iohexoL-300 100 ML VIAL IVP ONE (19:36)
--- NOTE | 2023-12-27 19:46 | CT Report ---
PROCEDURE: Abdomen/Pelvis W INDICATIONS: LLQ abd pain CONTRAST: 100 ML OMNI 300 TECHNIQUE: After the administration of intravenous contrast, a CT scan of the abdomen and pelvis was performed. Images were recorded and evaluated at appropriate window settings. Reformats: coronal and sagittal. F or radiation dose reduction, the following was used: automated exposure control, adjustment of mA and /or kV according to patient size. COMPARISON: None. FINDINGS: Image quality: Diagnostic. Lower chest: Unremarkable. Liver: No solid mass. Gallbladder and biliary tree: No radiopaque stones or wall thickening. No biliary dilation. Spleen: No splenomegaly. Pancreas: No pancreatic ductal dilation. Adrenals: No adrenal nodule. Kidneys and ureters: No hydronephrosis. No renal cystic lesion which requires follow up. No solid mas s. Stomach, bowel and peritoneum: There is diverticulosis, and there is extensive edematous change in th e wall of the sigmoid, most likely representing acute diverticulitis. Alternatively, there could be a focal segmental colitis involving the sigmoid. Lymph nodes: No central or retroperitoneal adenopathy. Vessels: No infrarenal aortic aneurysm. PELVIS Reproductive organs: Unremarkable. Bladder: Mild diffuse bladder wall thickening. Pelvic lymph nodes: No pelvic adenopathy by size criteria. Bones: No aggressive osseous abnormality. Other: No significant ventral or inguinal hernia. IMPRESSION: 1. Abnormal sigmoid colon. The findings most likely represent acute diverticulitis. However, cannot e xclude an acute focal segmental infectious or inflammatory colitis. Comment: If this patient does not respond appropriately to therapy for possible acute diverticulitis, direct visualization may be helpful Reviewed by: Raulito Nam MD on 12/27/2023 7:45 PM PDT Approved by: Raulito Nam MD on 12/27/2023 7:45 PM PDT Station ID: [id number]
--- NOTE | 2023-12-27 19:48 | ED Physician Documentation ---
PD HPI ABD PAIN - Stated complaint Stated Complaint: ABD PX - Chief complaint Chief Complaint: Abd Pain - History obtained from History obtained from: Patient - History of Present Illness Timing - onset: How many days ago (3) Timing - duration: Days (3) Timing - details: Gradual onset Pain level max: 4 Pain level now: 4 Quality: Aching, Pain Associated symptoms: No: Fever, Nausea, Vomiting, Hematemesis, Diarrhea, Constipation, Melena, Hematochezia, Dysuria, Hematuria - Additional information Additional information: Patient is a 43-year-old male who presents to the emergency department lower abdominal pain for the past 3 days. Feels like a diffuse ache. Nothing seems to make it better or worse. No diarrhea or constipation. No nausea or vomiting. No fevers. Has not had similar symptoms previously. Review of Systems Constitutional: denies: Fever, Chills Respiratory: denies: Cough PD PAST MEDICAL HISTORY - Past Medical History Past Medical History: Yes Cardiovascular: Hypertension Respiratory: None HEENT: Chronic vision loss, Other Psych: Depression, Anxiety, Other Musculoskeletal: Gout - Past Surgical History Past Surgical History: No - Present Medications Home Medications: Ambulatory Orders Medication Instructions Recorded Confirmed Amox/Clav 875/125 [Augmentin] 1 each PO Q8H #30 tablet 12/27/23 - Allergies Allergies/Adverse Reactions: Allergies Allergy/AdvReac Type Severity Reaction Status Date / Time No Known Drug Allergies Allergy Verified 12/27/23 17:50 - Social History Does the pt smoke?: Yes Smoking Status: Current every day smoker Does the pt drink ETOH?: No Does the pt have substance abuse?: Yes - Immunizations Immunizations are current?: Yes - POLST Patient has POLST: No PD ED PE NORMAL - Vitals Vital signs reviewed: Yes - General General: Alert and oriented X 3, No acute distress - HEENT HEENT: Moist mucous membranes - Neck Neck: Supple, no meningeal sign - Cardiac Cardiac: RRR, Strong equal pulses - Respiratory Respiratory: No respiratory distress, Clear bilaterally - Abdomen Abdomen: Soft, Non distended, Other (Tender to palpation left lower quadrant without peritoneal signs) - Back Back: No CVA TTP, No spinal TTP - Derm Derm: Warm and dry - Extremities Extremities: No edema, No calf tenderness / cord - Neuro Neuro: Alert and oriented X 3 - Psych Psych: Normal mood, Normal affect Results - Vitals Vitals: Vital Signs - 24 hr 12/27/23 12/27/23 12/27/23 17:50 18:19 20:00 Temperature 36.8 C 36.8 C Heart Rate 100 100 88 Respiratory 16 16 16 Rate Blood Pressure 160/90 H 187/111 H 150/88 H O2 Saturation 100 97 98 Oxygen O2 Source Room air - Labs Labs: Laboratory Tests 12/27/23 12/27/23 12/27/23 18:12 18:15 18:15 WBC 16.9 H RBC 5.24 Hgb 15.3 Hct 46.1 MCV 88.0 MCH 29.2 MCHC 33.2 RDW 13.1 Plt Count 307 MPV 9.8 Neut # (Auto) 12.9 H Lymph # (Auto) 2.3 [place] # (Auto) 1.2 H Eos # (Auto) 0.3 Baso # (Auto) 0.1 Absolute Nucleated RBC 0.00 Nucleated RBC % 0.0 Sodium 135 Potassium 3.9 Chloride 98 L Carbon Dioxide 31 Anion Gap 6.0 BUN 15 Creatinine 0.9 Estimated GFR (MDRD) 93 Glucose 99 Calcium 10.3 Total Bilirubin 0.4 AST 12 ALT 13 Alkaline Phosphatase 79 Total Protein 7.5 Albumin 4.3 Globulin 3.2 Albumin/Globulin Ratio 1.3 Lipase 14 Urine Color YELLOW Urine Clarity CLEAR Urine pH 6.5 Ur Specific [place] 1.020 Urine Protein TRACE Urine Glucose (UA) NEGATIVE Urine Ketones NEGATIVE Urine Occult Blood NEGATIVE Urine Nitrite NEGATIVE Urine Bilirubin NEGATIVE Urine Urobilinogen 0.2 (NORMAL) Ur Leukocyte Esterase NEGATIVE Ur Microscopic Review NOT INDICATED Urine Culture Comments NOT INDICATED - Rads (name of study) CT abdomen pelvis Relevant Findings:: Final report received, See rad report PD Medical Decision Making - ED course Complexity details: reviewed results, re-evaluated patient, considered differential, d/w patient ED course: 43-year-old male presents to the emergency department lower abdominal pain. Elevated white blood cell count. CT scan consistent with diverticulitis. Discussed risk and benefits of antibiotic therapy versus watchful waiting, including risk of c. diff. Patient elects antibiotics. Patient is well- appearing, nontoxic. Afebrile. No evidence of perforation or abscess on CT scan. Recommend colonoscopy after treatment. Patient counseled regarding signs and symptoms for which I believe and urgent re-evaluation would be necessary. Patient with good understanding of and agreement to plan and is comfortable going home at this time This document was made in part using voice recognition software. While efforts are made to proofread this document, sound alike and grammatical errors may occur. Departure - Departure Disposition: 01 Home, Self Care Clinical Impression: Diverticulitis Condition: Good Instructions: ED Diverticulitis Follow-Up: your,doctor in 1 week [Other] Prescriptions: Amox/Clav 875/125 [Augmentin] 1 each PO Q8H #30 tablet Comments: Take all antibiotics until gone. Please follow-up with your doctor for further care. It is recommended he have a colonoscopy once your diverticulitis has been treated. Please return for fevers, increasing pain or other new or worrisome symptoms. Your prescription was sent to [facility] PROCEDURE: Abdomen/Pelvis W INDICATIONS: LLQ abd pain CONTRAST: 100 ML OMNI 300 TECHNIQUE: After the administration of intravenous contrast, a CT scan of the abdomen and pelvis was performed. Images were recorded and evaluated at appropriate window settings. Reformats: coronal and sagittal. For radiation dose reduction, the following was used: automated exposure control, adjustment of mA and/or kV according to patient size. COMPARISON: None. FINDINGS: Image quality: Diagnostic. Lower chest: Unremarkable. Liver: No solid mass. Gallbladder and biliary tree: No radiopaque stones or wall thickening. No biliary dilation. Spleen: No splenomegaly. Pancreas: No pancreatic ductal dilation. Adrenals: No adrenal nodule. Kidneys and ureters: No hydronephrosis. No renal cystic lesion which requires follow up. No solid mass. Stomach, bowel and peritoneum: There is diverticulosis, and there is extensive edematous change in the wall of the sigmoid, most likely representing acute diverticulitis. Alternatively, there could be a focal segmental colitis involving the sigmoid. Lymph nodes: No central or retroperitoneal adenopathy. Vessels: No infrarenal aortic aneurysm. PELVIS Reproductive organs: Unremarkable. Bladder: Mild diffuse bladder wall thickening. Pelvic lymph nodes: No pelvic adenopathy by size criteria. Bones: No aggressive osseous abnormality. Other: No significant ventral or inguinal hernia. IMPRESSION: 1. Abnormal sigmoid colon. The findings most likely represent acute diverticulitis. However, cannot exclude an acute focal segmental infectious or inflammatory colitis. Comment: If this patient does not respond appropriately to therapy for possible acute diverticulitis, direct visualization may be helpful Forms: PCP List Discharge Date/Time: 12/27/23 20:20
[2023-12-27] MEDS: AMOX/CLAV 875 MG/125 MG TABLET PO STA (20:15)
[2023-12-27 20:23] VITALS: BP 150/88; O2SAT 98
== END 2023-12-27 20:20 | disposition home or self-care (01) ==
LOC: ED 17:47
DX: K57.32 Diverticulitis of large intestine without perforation or abscess without bleeding (principal); I10 Essential (primary) hypertension; F17.200 Nicotine dependence, unspecified, uncomplicated
CPT/HCPCS: 36415; 74177; 80053; 81003; 83690; 85025; 99284; A9270; Q9967; 81001; 87086

== ENCOUNTER 2024-01-20 05:26 | Outpatient (CLI) | payer MEDICAID | END 2024-01-20 05:27 | disposition EMS.NT | LOC: EMS 05:26 | DX: F41.0 Panic disorder [episodic paroxysmal anxiety] (principal) ==

== ENCOUNTER 2024-02-16 02:37 | Outpatient (CLI) | payer MEDICAID | END 2024-02-16 23:52 | disposition critical access hospital (66) | LOC: EMS 02:37 | DX: F41.9 Anxiety disorder, unspecified (principal) | CPT/HCPCS: A0425; A0429; A0999 ==

== ENCOUNTER 2024-02-16 03:08 | Emergency (ER) | payer MEDICAID ==
--- NOTE | 2024-02-16 03:26 | ED Physician Documentation ---
History of Present Illness - Stated complaint Stated Complaint: ANXIETY - History obtained from History obtained from: Patient, EMS - Additonal information Additional information: The patient is brought to the emergency department by EMS for chief complaint of anxiety. He left his house earlier today because he stated that he did not feel safe sleeping there and states he was just going to sleep outside. He then finally called EMS from a paved phone stating that he wanted to come to the ER and get something for anxiety. Medics state that they have had calls like this from the patient multiple times previously. The patient denies any problems with his roommates but that he just gets anxiety attacks and is afraid to be in the house. He denies hallucinations. No suicidal or homicidal ideation. No other complaints at this time. PD PAST MEDICAL HISTORY - Past Medical History Cardiovascular: Hypertension Respiratory: None HEENT: Chronic vision loss, Other Psych: Depression, Anxiety, Other Musculoskeletal: Gout - Past Surgical History Past Surgical History: No - Allergies Allergies/Adverse Reactions: Allergies Allergy/AdvReac Type Severity Reaction Status Date / Time No Known Drug Allergies Allergy Verified 02/16/24 03:22 - Social History Does the pt smoke?: Yes Smoking Status: Current every day smoker Does the pt drink ETOH?: No Does the pt have substance abuse?: Yes - Immunizations Immunizations are current?: Yes - POLST Patient has POLST: No PD ED PE NORMAL - Vitals Vital signs reviewed: Yes - General General: Alert and oriented X 3, No acute distress, Well developed/nourished, Other (The patient is quite drowsy, nodding off in the middle of our conversatio n. He does not appear anxious.) - HEENT HEENT: Atraumatic, EOMI, Moist mucous membranes - Neck Neck: Supple, no meningeal sign - Cardiac Cardiac: RRR, No murmur - Respiratory Respiratory: No respiratory distress, Clear bilaterally - Abdomen Abdomen: Soft, Non distended - Derm Derm: Normal color, Warm and dry, No rash - Extremities Extremities: No deformity - Neuro Neuro: Other (Drowsy but arousable. Grossly intact.) - Psych Psych: Normal mood, Normal affect Results - Vitals Vitals: Oxygen O2 Source Room air PD Medical Decision Making - ED course Complexity details: considered differential, d/w patient ED course: The patient was given 0.25 mg of Xanax here in the emergency department. He did not appear anxious and I did not feel any further emergent intervention was indicated. He was not suicidal or homicidal and I did not feel he needed to be detained in the emergency department on mental health grounds. We have discussed the need for follow-up and the usual indications for return. Departure - Departure Disposition: 01 Home, Self Care Clinical Impression: Anxiety Condition: Stable Instructions: ED Panic Attack Follow-Up: Michele Lang MD [Provider Admit Priv/Credential] - Comments: You have been treated in the emergency department for anxiety today. Please follow-up in primary care for further concerns.
[2024-02-16 03:33] VITALS: BP 144/85; O2SAT 98
[2024-02-16] MEDS: ALPRAZolam 0.25 MG TABLET PO STA (03:43)
== END 2024-02-16 03:46 | disposition home or self-care (01) ==
LOC: EDUNIT# → ED 03:08
DX: F41.9 Anxiety disorder, unspecified (principal); I10 Essential (primary) hypertension; F17.200 Nicotine dependence, unspecified, uncomplicated
CPT/HCPCS: 99283; A9270

== ENCOUNTER 2024-02-20 02:38 | Outpatient (CLI) | payer MEDICAID | END 2024-02-20 23:59 | disposition critical access hospital (66) | LOC: EMS 02:38 | DX: R45.89 Other symptoms and signs involving emotional state (principal); R03.0 Elevated blood-pressure reading, without diagnosis of hypertension; Z59.00 Homelessness unspecified | CPT/HCPCS: A0425; A0429; A0999 ==

== ENCOUNTER 2024-02-20 03:14 | Emergency (ER) | payer MEDICAID ==
[2024-02-20 03:41] VITALS: BP 161/101; O2SAT 100
--- NOTE | 2024-02-20 03:43 | ED Physician Documentation ---
History of Present Illness - Stated complaint Stated Complaint: PANIC ATTACK - Chief complaint Chief Complaint: MHE - History obtained from History obtained from: Patient, EMS - Additonal information Additional information: BIBA. Patient called 911 with complaint of anxiety. He was treated and released from this emergency department for same complaint 3 days ago; at that time, he was given a 1-time dose of p.o. Xanax and discharged without Rx. On my HPI, patient's answers to my questions are brief. He falls asleep repeatedly during H&P. As result, I am unable to ascertain from patient the socorro ing/onset of this anxiety. However, he is able to verbalize that he is not having AH/VH, SI/HI. PD PAST MEDICAL HISTORY - Past Medical History Cardiovascular: Hypertension Respiratory: None HEENT: Chronic vision loss, Other Psych: Depression, Anxiety, Other Musculoskeletal: Gout Derm: Herpes zoster, Other Other Past Medical History: genital and occular herpes - Past Surgical History Past Surgical History: No - Present Medications Home Medications: Ambulatory Orders Medication Instructions Recorded Confirmed ALPRAZolam [Alprazolam] 0.5 mg PO BID PRN #10 tablet 02/20/24 - Allergies Allergies/Adverse Reactions: Allergies Allergy/AdvReac Type Severity Reaction Status Date / Time No Known Drug Allergies Allergy Verified 02/20/24 03:21 - Social History Does the pt smoke?: Yes Smoking Status: Current every day smoker Does the pt drink ETOH?: No Does the pt have substance abuse?: Yes - Immunizations Immunizations are current?: Yes - POLST Patient has POLST: No PD ED PE NORMAL - Vitals Vital signs reviewed: Yes - General General: Alert and oriented X 3, No acute distress, Well developed/nourished, Other (drowsy, repeatedly falls asleep during HPI) - HEENT HEENT: Atraumatic, PERRL, EOMI - Cardiac Cardiac: RRR, No murmur - Respiratory Respiratory: No respiratory distress, Clear bilaterally - Neuro Eye Opening: To Voice Motor: Obeys Commands Verbal: Oriented GCS Score: 14 Results - Vitals Vitals: Vital Signs - 24 hr 02/20/24 03:21 Temperature 36.3 C L Heart Rate 75 Respiratory 15 Rate Blood Pressure 161/101 H O2 Saturation 100 Oxygen O2 Source Room air PD Medical Decision Making - ED course Complexity details: reviewed old records, considered differential, d/w patient ED course: Brought in by ambulance for complaint of anxiety. He is quite drowsy on my HPI, requiring repeated stimulus to reawaken him as he repeatedly falls asleep during H&P. Certainly, his appearance on exam is not consistent with acute anxiety. He is denying AH/VH, SI/HI. I explained to him that I would provide him with a prescription for a short course of p.o. alprazolam to be taken as needed up to twice per day but that this is only meant as a bridge medication to help with episodic anxiety until he can arrange for follow-up with an outpatient provider. Departure - Departure Disposition: Home, Self Care Clinical Impression: Anxiety Condition: Good Instructions: ED Panic Attack Prescriptions: ALPRAZolam [Alprazolam] 0.5 mg PO BID PRN #10 tablet PRN Reason: Anxiety Comments: I am providing you with a prescription for a short course of an anti-anxiety medication (Xanax, alprazolam). Do not take more than the dose/frequency indicated on the prescription label. It is only to be taken as needed for anxiety. This medication is strictly meant to provide short-term relief of episodic anxiety until you can follow-up with an outpatient (primary care) provider. It is very important that you establish with a primary care provider for reevaluation of recurrent symptoms including recurrent anxiety. Forms: PCP List Discharge Date/Time: 02/20/24 04:28
== END 2024-02-20 04:28 | disposition home or self-care (01) ==
LOC: EDBD → EDUNIT# → ED 03:14
DX: F41.9 Anxiety disorder, unspecified (principal); I10 Essential (primary) hypertension; F17.200 Nicotine dependence, unspecified, uncomplicated
CPT/HCPCS: 99283

== ENCOUNTER 2024-03-13 04:16 | Outpatient (CLI) | payer MEDICAID | END 2024-03-13 04:17 | disposition critical access hospital (66) | LOC: EMS 04:16 | DX: R06.02 Shortness of breath (principal); F41.9 Anxiety disorder, unspecified; R06.2 Wheezing | CPT/HCPCS: A0425; A0427; A0999 ==

== ENCOUNTER 2024-03-13 04:50 | Emergency (ER) | payer MEDICAID ==
--- NOTE | 2024-03-13 04:50 | ED Physician Documentation ---
PD HPI DYSPNEA - Stated complaint Stated Complaint: SOA/ANXIETY - History obtained from History obtained from: Patient, EMS - Additional information Additional information: HPI from EMS, patient. Patient called 911 due to dyspnea which began earlier this evening. No inciting event. EMS found patient to have 97% RA pulse ox but bilateral expiratory wheezing and thus administered duoneb en route. Regarding the duoneb, "he didn't finish it" (per EMS reports); when I ask for clarification, they say patient's wheezing (objectively) resolved before completing the neb, and that patient was also wanting to stop using the neb before it was done. Since improving from a respiratory standpoint, patient was telling EMS he is having difficulty focusing/concentrating (thoughts), has AH. On my HPI, patient provides adequate answers to my questions for the purposes of MSE (medical screening exam). He makes almost no eye contact and many answers reflect uncertainty. However, he gives rapid and firm answers when denying SI, HI. He denies VH, as well. He describes infrequent AH that are not bothersome and do not give commands nor devalue patient. He is unable to say if he is making out actually words/phrases/sentences. PD PAST MEDICAL HISTORY - Past Medical History Past Medical History: No - Present Medications Home Medications: Ambulatory Orders Medication Instructions Recorded Confirmed ALPRAZolam [Alprazolam] 0.5 mg PO BID PRN #10 tablet 02/20/24 ALPRAZolam [Alprazolam] 0.5 mg PO BID PRN #7 tablet 03/13/24 OLANZapine [Olanzapine] 5 mg PO DAILY #10 tablet 03/13/24 - Allergies Allergies/Adverse Reactions: Allergies Allergy/AdvReac Type Severity Reaction Status Date / Time No Known Drug Allergies Allergy Verified 03/13/24 15:31 - Living Situation Living Arrangement: reports: At home PD ED PE NORMAL - Vitals Vital signs reviewed: Yes - General General: Alert and oriented X 3, No acute distress, Other (disheveled) - HEENT HEENT: Atraumatic, PERRL, EOMI, Moist mucous membranes - Neck Neck: Supple, no meningeal sign - Cardiac Cardiac: RRR, No murmur - Respiratory Respiratory: No respiratory distress, Clear bilaterally - Abdomen Abdomen: Normal bowel sounds, Soft, Non tender - Neuro Neuro: Alert and oriented X 3 Eye Opening: Spontaneous Motor: Obeys Commands Verbal: Oriented GCS Score: 15 PD ED PE EXPANDED - Psych Psych: Withdrawn, Poor eye contact (practically no eye contact; mostly keeps eyes closed. when (briefly) open, mostly staring around room. he does very briefly and rarely make eye contact with examining physician), Other (drowsy/sleepy, awakens easily to voice but also falls back asleep several times during H+P) Results - Vitals Vitals: Oxygen O2 Source Room air PD Medical Decision Making - ED course Complexity details: reviewed results, re-evaluated patient, considered differential, d/w patient ED course: Several [facility] ED visits over past few months. I provided rx beginning of this month for alprazolam #10 tablets. He does not think he filled this, and there is no indication on [facility] form nor in [employer] that this rx was filled. Similarly, rx for olanzepine and trazadone from this ED also without indication that either was filled. No emergent testing indicated at this time. He is denying HI/SI/VH and is describing occasional AH which do not seem to be obtrusive nor bothersome to him. I asked him a few times what he would like to accomplish on this ED visit and what I can do to help him feel better. As with most of his answers, he says "I don't know" but without angst or distress (rather, it is more with ambivalence and apathy, which would suggest against emergent psychiatric issue that would involve imminent harm to self or others). He declines my offer of telepsychiatric services and says he wants to go home. Return precautions reviewed. I instructed him to seek follow up with PCP (patient says he has a PCP in [place]). I am providing him prescriptions (printed) for alprazolam and olanzepine. I explained that the olanzepine might help with the scattered thoughts and the AH, whereas the alprazolam is to be taken per label instructions PRN for anxiety. Departure - Departure Disposition: 01 Home, Self Care Clinical Impression: Auditory hallucination Dyspnea Qualifiers: Dyspnea type: unspecified Qualified Code(s): R06.00 - Dyspnea, unspecified Condition: Good Instructions: ED Dyspnea Shortness of Breath, ED Panic Attack, ED Psychosis Prescriptions: ALPRAZolam [Alprazolam] 0.5 mg PO BID PRN #7 tablet PRN Reason: Anxiety OLANZapine [Olanzapine] 5 mg PO DAILY #10 tablet Comments: I am providing you with a prescription for 2 different medications. The first is alprazolam; you can take this up to twice a day but only take it as needed for anxiety. The second medication is olanzapine; this is to be taken once per day (every day, NOT NEEDED). The olanzapine can help with scattered thoughts as well as auditory hallucinations (hearing voices). I am providing a very short course of both these medications. It is very important that you pursue follow-up with your primary care provider as soon as can be arranged. This is so that you can be reevaluated for issues such as your recurrent anxiety and high blood pressure. More time and attention can be taken in meeting with your primary care provider to allow for consideration as to what prescription medications would best treat your medical issues. Forms: PCP List Discharge Date/Time: 03/13/24 05:50
[2024-03-13 06:00] VITALS: BP 158/110; O2SAT 99
== END 2024-03-13 05:50 | disposition home or self-care (01) ==
LOC: EDUNIT# → ED 04:50
DX: R44.0 Auditory hallucinations (principal); R06.00 Dyspnea, unspecified; F41.9 Anxiety disorder, unspecified; I10 Essential (primary) hypertension
CPT/HCPCS: 99283

== ENCOUNTER 2024-03-13 14:55 | Outpatient (CLI) | payer MEDICAID | END 2024-03-13 23:59 | disposition critical access hospital (66) | LOC: EMS 14:55 | DX: M79.652 Pain in left thigh (principal); R25.2 Cramp and spasm; R26.2 Difficulty in walking, not elsewhere classified | CPT/HCPCS: A0425; A0429; A0999 ==

== ENCOUNTER 2024-03-13 15:29 | Emergency (ER) | payer MEDICAID ==
[2024-03-13 15:35] VITALS: O2SAT 97
--- NOTE | 2024-03-13 17:36 | ED Physician Documentation ---
History of Present Illness - Stated complaint Stated Complaint: LEG PX - Chief complaint Chief Complaint: Ext Problem - History obtained from History obtained from: Patient - Additonal information Additional information: The patient comes to the emergency department chief complaint of left leg pain. He states it is located in his thigh and feels like a cramp. It started last night and he says it comes in waves. The patient denies any fevers or chills. No history of DVT. No injury. No other complaints at this time. PD PAST MEDICAL HISTORY - Past Medical History Past Medical History: Yes Cardiovascular: Hypertension Respiratory: None HEENT: Chronic vision loss, Other Psych: Depression, Anxiety, Other Musculoskeletal: Gout Derm: Herpes zoster, Other - Past Surgical History Past Surgical History: No - Present Medications Home Medications: Ambulatory Orders Medication Instructions Recorded Confirmed ALPRAZolam [Alprazolam] 0.5 mg PO BID PRN #10 tablet 02/20/24 ALPRAZolam [Alprazolam] 0.5 mg PO BID PRN #7 tablet 03/13/24 OLANZapine [Olanzapine] 5 mg PO DAILY #10 tablet 03/13/24 - Allergies Allergies/Adverse Reactions: Allergies Allergy/AdvReac Type Severity Reaction Status Date / Time No Known Drug Allergies Allergy Verified 03/13/24 15:31 - Social History Does the pt smoke?: Yes Smoking Status: Current every day smoker Does the pt drink ETOH?: No Does the pt have substance abuse?: Yes - Immunizations Immunizations are current?: Yes - POLST Patient has POLST: No PD ED PE NORMAL - Vitals Vital signs reviewed: Yes - General General: No acute distress, Well developed/nourished, Other (Patient is drowsy but otherwise appropriate as far as answers to questions.) - HEENT HEENT: Atraumatic, EOMI, Moist mucous membranes - Neck Neck: Supple, no meningeal sign - Cardiac Cardiac: Strong equal pulses - Respiratory Respiratory: No respiratory distress - Derm Derm: Normal color, Warm and dry, No rash - Extremities Extremities: No deformity, No edema, No calf tenderness / cord, Other (Tenderness to palpation over anterior left thigh. No contusion, erythema, or induration.) - Neuro Neuro: No motor deficit, No sensory deficit, Other (Awake, though somewhat drowsy, grossly intact otherwise.) - Psych Psych: Normal mood, Normal affect Results - Vitals Vitals: Vital Signs - 24 hr 03/13/24 15:31 Temperature 36.8 C Heart Rate 60 Respiratory 18 Rate Blood Pressure 142/90 H O2 Saturation 97 Oxygen O2 Source Room air PD Medical Decision Making - ED course Complexity details: reviewed old records, considered differential, d/w patient ED course: The patient had no findings on exam other than some tenderness, and he had already been here this morning and last week. I discussed with the patient that I do not find any evidence of an emergent condition and there is no specific treatment to be done in the emergency department at this time. He is advised to follow-up with his primary doctor. He has not picked up his medications that were prescribed this morning and he is advised to do this as well. Departure - Departure Disposition: 01 Home, Self Care Clinical Impression: Muscle cramp Condition: Stable Instructions: ED Muscle Pain Leg Cramps Comments: You are probably having a muscle cramp in your thigh. There is nothing emergent going on and you have already been to the emergency department repeatedly over the last week. Medication was prescribed for you earlier this morning when you were here and needs to be picked up at the pharmacy. Please follow-up with your primary doctor as needed. You can try stretching your thigh out to help with the cramping pain.
[2024-03-13 18:20] VITALS: BP 138/88
== END 2024-03-13 18:11 | disposition home or self-care (01) ==
LOC: EDUNIT# → ED 15:29
DX: R25.2 Cramp and spasm (principal); F17.200 Nicotine dependence, unspecified, uncomplicated
CPT/HCPCS: 99283

== ENCOUNTER 2024-04-20 03:32 | Outpatient (CLI) | payer MEDICAID | END 2024-04-20 23:59 | disposition critical access hospital (66) | LOC: EMS 03:32 | DX: R41.0 Disorientation, unspecified (principal); F41.9 Anxiety disorder, unspecified | CPT/HCPCS: A0425; A0429; A0999 ==

== ENCOUNTER 2024-04-20 03:40 | Emergency (ER) | payer MEDICAID ==
--- NOTE | 2024-04-20 03:42 | ED Physician Documentation ---
History of Present Illness - Stated complaint Stated Complaint: ANXIETY - History obtained from History obtained from: Patient, EMS - Additonal information Additional information: BIBA. Patient called 911 due to anxiety. He was arrested tonight due to driving without a license but released after processing. he subsequently was trying to walk from [place] to [place] when he felt rapidly worsening generalized anxiety. he was evaluated for similar c/o last month, was prescribed zyprexa and alprazolam but filled neither of these. he denies SI, HI, AH, VH. as with my evaluations of this patient on last month's ED visits, he is scattered in his expressed thoughts during HPI/ROS although able to provide adequate answers for purposes of this ED evaluation PD PAST MEDICAL HISTORY - Past Medical History Cardiovascular: Hypertension Respiratory: None HEENT: Chronic vision loss, Other Psych: Depression, Anxiety, Other Musculoskeletal: Gout Derm: Herpes zoster, Other - Past Surgical History Past Surgical History: No - Present Medications Home Medications: Ambulatory Orders Medication Instructions Recorded Confirmed LORazepam [Ativan] 0.5 mg PO Q6H PRN #14 tablet 04/20/24 - Allergies Allergies/Adverse Reactions: Allergies Allergy/AdvReac Type Severity Reaction Status Date / Time No Known Drug Allergies Allergy Verified 04/20/24 04:00 - Social History Does the pt smoke?: Yes Smoking Status: Current every day smoker Does the pt drink ETOH?: No Does the pt have substance abuse?: Yes - Immunizations Immunizations are current?: Yes - POLST Patient has POLST: No PD ED PE NORMAL - Vitals Vital signs reviewed: Yes - General General: Alert and oriented X 3, Well developed/nourished, Other (appears anxious ) - HEENT HEENT: Other (right eye opacification) - Cardiac Cardiac: RRR, No murmur - Respiratory Respiratory: No respiratory distress, Clear bilaterally - Neuro Neuro: Alert and oriented X 3, Normal speech Eye Opening: Spontaneous Motor: Obeys Commands Verbal: Oriented GCS Score: 15 PD ED PE EXPANDED - Psych Psych: Anxious Results - Vitals Vitals: Vital Signs - 24 hr 04/20/24 03:40 Temperature 36.5 C Heart Rate 116 H Respiratory 18 Rate Blood Pressure 146/106 H O2 Saturation 100 Oxygen O2 Source Room air PD Medical Decision Making - ED course Complexity details: considered differential, d/w patient ED course: patient is offered, and declines, telepsychiatric consult. he appears anxious and, at times, hypervigilant and briefly expressing paranoid thoughts (specifically that people are outside of the ambulance bay waiting for him). I recommended 1mg po lorazepam, explaining the medication and purpose for this medication in this particular scenario (anxiolysis). he initially agrees with this but then declines when ED RN brings him the medication. He then requests d/c; I do not have sufficient reason/cause to hold patient against his will and he is d/c with printed rx for lorazepam. I instructed him to contact PCP to arrange for next available appointment for reevaluation. return precautions discussed. Departure - Departure Disposition: Home, Self Care Clinical Impression: Anxiety Condition: Good Instructions: ED Panic Attack Prescriptions: LORazepam [Ativan] 0.5 mg PO Q6H PRN #14 tablet PRN Reason: Anxiety Comments: You have declined the anti-anxiety medication that we discussed (lorazepam). I am providing you with a prescription for this medication should you change your mind; as we discussed, this medication can help decrease anxiety and feelings of being overwhelmed. Contact your primary care provider later this morning when the office is open to arrange for the next available appointment for follow-up/reevaluation. You can was return to the emergency department at any time you feel you need to be reevaluated from the emergency standpoint. Forms: PCP List Discharge Date/Time: 04/20/24 04:33
[2024-04-20 03:46] VITALS: BP 146/106; O2SAT 100
[2024-04-20] MEDS: LORazepam 0.5 MG TABLET PO STA (04:33)
== END 2024-04-20 04:33 | disposition home or self-care (01) ==
LOC: ED 03:40
DX: F41.9 Anxiety disorder, unspecified (principal); I10 Essential (primary) hypertension
CPT/HCPCS: 99283

== ENCOUNTER 2024-05-04 01:20 | Outpatient (CLI) | payer MEDICAID | END 2024-05-04 23:59 | disposition EMS.NT | LOC: EMS 01:20 | DX: F41.0 Panic disorder [episodic paroxysmal anxiety] (principal) ==

== ENCOUNTER 2024-05-04 02:45 | Outpatient (CLI) | payer MEDICAID | END 2024-05-04 23:59 | disposition EMS.NT | LOC: EMS 02:45 | DX: F41.0 Panic disorder [episodic paroxysmal anxiety] (principal) ==

== ENCOUNTER 2024-06-10 02:11 | Outpatient (CLI) | payer MEDICAID | END 2024-06-10 02:12 | disposition EMS.NT | LOC: EMS 02:11 | DX: F43.9 Reaction to severe stress, unspecified (principal) ==

== ENCOUNTER 2024-06-10 03:42 | Outpatient (CLI) | payer MEDICAID | END 2024-06-10 03:43 | disposition EMS.NT | LOC: EMS 03:42 | DX: F41.0 Panic disorder [episodic paroxysmal anxiety] (principal) ==